=== PATIENT | female | born 1960 | race Caucasian/White ===

== ENCOUNTER 2023-09-08 05:40 | Inpatient (IN) | payer BC ==
[2023-09-05 16:19] LABS: BILIRUBIN,URINE NEGATIVE (Neg); CLARITY,URINE SLIGHTLY CLOUDY (Clear); COLOR,URINE YELLOW (Yellow); GLUCOSE, URINE NEGATIVE (Neg); KETONES,URINE NEGATIVE (Neg); LEUKOCYTE ESTERASE ,URINE NEGATIVE (Neg); NITRITES, URINE NEGATIVE (Neg); OCCULT BLOOD,URINE NEGATIVE (Neg); PH,URINE 8.5 (4.8-8.0); PROTEIN,URINE NEGATIVE (Neg); UROBILINOGEN,URINE 0.2 E.U/dL (0.2-1.0)
[2023-09-05 16:23] LABS: UA COLLECTION TYPE CLN CATCH MIDSTREAM
[2023-09-05 16:24] LABS: SQUAMOUS EPITHELIAL CELL,UR MANY /LPF (FEW)
[2023-09-05 16:27] LABS: BACTERIA,URINE 1+ /HPF (Neg); RBC,URINE NONE SEEN /HPF (0-2); WBC,URINE 0-4 /HPF (0-4)
[2023-09-05 16:32] LABS: BASOPHILS # (AUTO) 0.1 X10'3 (0-0.2); BASOPHILS % (AUTO) 1.1 % (0-1); EOSINOPHILS # (AUTO) 0.4 X10'3 (0-0.9); LYMPHOCYTES # (AUTO) 2.5 X10'3 (1.1-4.8); LYMPHOCYTES % (AUTO) 29.3 % (21-51); MEAN CORPUSCULAR HEMOGLOBIN 32.1 PG (27.0-31.0); MEAN CORPUSCULAR HGB CONC 33.4 g/dL (33.0-36.5); MEAN CORPUSCULAR VOLUME 96.3 FL (78-98); MEAN PLATELET VOLUME 8.2 FL (7.4-10.4); MONOCYTES # (AUTO) 0.8 X10'3 (0-0.9); MONOCYTES % (AUTO) 9.1 % (2-12); NEUTROPHILS # (AUTO) 4.7 X10'3 (1.8-7.7); NEUTROPHILS % (AUTO) 55.5 % (42-75); PRE OP HEMATOCRIT 44.5 % (35.0-45.0); PRE OP HEMOGLOBIN 14.8 g/dL (12.0-16.0); PRE OP PLATELET COUNT 253 X10'3 (140-440); PRE OP WHITE BLOOD COUNT 8.6 10'3 (4.8-10.8); RED BLOOD COUNT 4.62 X10'6 (4.20-5.60); RED CELL DISTRIBUTION WIDTH 14.4 % (11.5-14.5)
[2023-09-05 16:36] LABS: ALBUMIN 3.4 G/DL (3.4-5.0); ALKALINE PHOSPHATASE 139 IU/L (46-116); BLOOD UREA NITROGEN 18 MG/DL (7-18); BUN/CREATININE RATIO 25.4 (10.0-20.0); CALCIUM 8.5 MG/DL (8.5-10.1); CHLORIDE 106 MMOL/L (99-107); CREATININE 0.71 MG/DL (0.40-0.90); PRE OP ALT 22 U/L (30-65); PRE OP ANION GAP 9 (8-16); PRE OP AST 14 U/L (10-37); PRE OP BILIRUB, TOTAL 0.2 MG/DL (0.0-1.0); PRE OP GLUCOSE 83 MG/DL (70-104); PRE OP SODIUM 142 MMOL/L (135-145); TOTAL CARBON DIOXIDE 27.2 MMOL/L (24-32); TOTAL PROTEIN 6.7 G/DL (6.4-8.2); eGFR 84 ML/MIN
[2023-09-08] VITALS (20 sets, daily range): BP systolic 111–147; BP diastolic 56–94; PULSE 67–107; RESP 13–25; TEMP 97.6; O2SAT 64–98
[~2023-09-08] VITALS: Ht 167.6 cm; Wt 110.0 kg
[2023-09-08] MEDS: ceFOXitin 2GM-NS 100mL ADDvant 100 ML IV ONE (05:30)
[~2023-09-08 05:40] MED LIST: ATOR20TA PO; TIRZ5PEN3 SQ; VITAMIN B12 GUMMIES PO
[2023-09-08] MEDS: famotidine 20mg tablet PO ONE (06:29)
[2023-09-08] MEDS: ringers solution, lacted 1,000 ML IV SCH ×3 (06:30→14:00)
[2023-09-08] MEDS ORDERED: BUPIVAcaine 2.5mg/ml inj 50ml vial (contains preservative) ONE ×2 (07:16→11:26)
[2023-09-08] MEDS ORDERED: neomy sulf/polymyxin B sulf. GU irrigation 1ml amp IR ONE (07:16)
[2023-09-08] MEDS ORDERED: sevoflurane 250ml liquid IH ONE (07:37)
[2023-09-08] MEDS ORDERED: midazolam 1 mg/ML 2ml injection ONE (07:45)
[2023-09-08] MEDS ORDERED: morphine 4 MG/ML inj SYRINge IV PRN ×2 (08:10→12:45)
[2023-09-08] MEDS ORDERED: meperidine/PF 25mg/ml syringe IV PRN ×3 (08:10)
[2023-09-08] MEDS ORDERED: hydrALAZINE 20mg/ml inj. IV PRN (08:10)
[2023-09-08] MEDS ORDERED: labetalol 20mg/4ml (5mg/ml) syringe IV PRN (08:10)
[2023-09-08] MEDS ORDERED: ondansetron/PF 4mg/2ml inj IV PRN ×3 (08:10→12:45)
[2023-09-08] MEDS ORDERED: proCHLORperazine 10 MG/2 ml inj IV PRN (08:10)
[2023-09-08] MEDS ORDERED: morphine 2 MG/ML inj. syringe IV PRN ×2 (08:10→12:45)
[2023-09-08] MEDS ORDERED: fentaNYL /PF 50mcg/ml 5ml ampule ONE (08:15)
[2023-09-08] MEDS ORDERED: ondansetron/PF 4mg/2ml inj ONE (08:15)
[2023-09-08] MEDS ORDERED: propofol inj 20 ML IV ONE (08:15)
[2023-09-08] MEDS ORDERED: rocuronium 10mg/ml inj IV ONE ×2 (08:15→11:35)
[2023-09-08] MEDS ORDERED: dexamethasone sod phosphate 4mg/ml inj. ONE (08:15)
[2023-09-08] MEDS ORDERED: LIDOcaine 2% (20mg/ml) 5ml vial ONE (08:15)
[2023-09-08] MEDS ORDERED: 0.9 % SODIUM CHLORIDE 10 ML VIAL ONE (08:51)
[2023-09-08] MEDS ORDERED: ePHEDrine 50MG/ML INJ. ONE (08:51)
[2023-09-08] MEDS: BUPIVAcaine 2.5mg/ml inj 50ml vial (contains preservative) IJ ONE (08:57)
[2023-09-08] MEDS: vasoPRESSIN 20 units/ml inj. ONE (09:02)
[2023-09-08] MEDS ORDERED: glycopyrrolate 0.2mg/ml inj ONE (11:39)
[2023-09-08] MEDS ORDERED: neostigmine methylsulfate 1 MG/ML 10ml vial ONE (11:39)
[2023-09-08] MEDS ORDERED: morphine 4 MG/ML inj SYRINge ONE (11:41)
[2023-09-08] MEDS ORDERED: temazepam 15mg capsule PO PRN (11:55)
[2023-09-08] MEDS ORDERED: LORazepam 1 MG tablet PO PRN (11:55)
[2023-09-08] MEDS ORDERED: metoclopramide 5 mg/ml inj IV PRN (11:55)
[2023-09-08] MEDS ORDERED: diphenhydrAMINE 50 mg/ml inj IV PRN (11:55)
[2023-09-08] MEDS ORDERED: LORazepam 2 mg/ml vial IV PRN (11:55)
[2023-09-08] MEDS ORDERED: normal saline 500ml IV soln 500 ML IV PRN (11:55)
[2023-09-08] MEDS ORDERED: magnesium hydroxide 30ml (MOM) UD suspension PO PRN ×2 (11:55→12:45)
[2023-09-08] MEDS ORDERED: sugammadex 200mg/2ml injection IV ONE (12:19)
[2023-09-08] MEDS ORDERED: midazolam 1 mg/ML 2ml injection IV PRN (12:30)
[2023-09-08] MEDS ORDERED: fentaNYL/PF 50MCG/1 ML 2ML syringe IV PRN (12:30)
[2023-09-08] MEDS ORDERED: acetaminophen 325mg tablet PO PRN ×2 (12:45)
[2023-09-08] MEDS: LidoCAINE 2% Topical Jelly 11mL syringe (UROJET) TOP ONE (12:45)
[2023-09-08] MEDS: propofol 1000mg/100ml bottle 100 ML IV ONE (12:46)
[2023-09-08] MEDS: acetaminophen 1,000mg/100ml IV 100 ML IV ONE (12:55)
[2023-09-08] MEDS: propofol 1000mg/100ml bottle 100 ML IV SCH (12:56)
[2023-09-08] MEDS: docusate sod 100mg capsule PO SCH (20:07)
[2023-09-08] MEDS: HYDROcodone/acetaminophen 10/325mg tab PO PRN (20:08)
[2023-09-09] VITALS (13 sets, daily range): BP systolic 100–144; BP diastolic 55–81; PULSE 64–80; RESP 12–21; O2SAT 91–97
[2023-09-09 04:59] LABS: ALBUMIN 2.8 G/DL (3.4-5.0); ANION GAP 9 (8-16); BLOOD UREA NITROGEN 14 MG/DL (7-18); BUN/CREATININE RATIO 16.5 (10.0-20.0); CHLORIDE 105 MMOL/L (99-107); CREATININE 0.85 MG/DL (0.40-0.90); GLUCOSE 154 MG/DL (70-104); POTASSIUM 4.3 MMOL/L (3.5-5.1); SODIUM 138 MMOL/L (135-145); TOTAL CARBON DIOXIDE 24.3 MMOL/L (24-32); eCRCL 66 ML/MIN; eGFR 68 ML/MIN
[2023-09-09 05:01] LABS: BASOPHILS % (AUTO) 0.2 % (0-1); EOSINOPHILS % (AUTO) 0 % (0-6); HEMATOCRIT 41.8 % (35.0-45.0); HEMOGLOBIN 13.7 g/dl (12.0-16.0); LYMPHOCYTES # (AUTO) 1.2 X10'3 (1.1-4.8); LYMPHOCYTES % (AUTO) 9.5 % (21-51); MEAN CORPUSCULAR HEMOGLOBIN 31.3 PG (27.0-31.0); MEAN CORPUSCULAR HGB CONC 32.7 g/dL (33.0-36.5); MEAN CORPUSCULAR VOLUME 95.9 FL (78-98); MONOCYTES # (AUTO) 0.7 X10'3 (0-0.9); MONOCYTES % (AUTO) 5.7 % (2-12); NEUTROPHILS # (AUTO) 10.3 X10'3 (1.8-7.7); NEUTROPHILS % (AUTO) 84.6 % (42-75); PLATELET COUNT 223 X10'3 (140-440); RED BLOOD COUNT 4.36 X10'6 (4.20-5.60); RED CELL DISTRIBUTION WIDTH 14.5 % (11.5-14.5); WHITE BLOOD COUNT 12.2 X10'3 (4.5-11.0)
[2023-09-09] MEDS: HYDROcodone/acetaminophen 10/325mg tab PO PRN (07:44)
[2023-09-09] MEDS: enoxaparin 40mg/0.4ml syringe SQ SCH (07:45)
[2023-09-09] MEDS: ketorolac trometh. 30mg/ml inj. IV PRN (13:22)
== END 2023-09-09 14:17 | disposition home or self-care (01) | DRG 743 ==
LOC: PAS 05:40 → CICU 2S 12:36 → PAS 12:47 → CICU 2S 12:48
PROVIDERS: ADMIT Internal Medicine Critical Care Medicine; ATTEND Internal Medicine Critical Care Medicine
PROC: 0UT2FZZ Resection of Bilateral Ovaries, Via Natural or Artificial Opening With Percutaneous Endoscopic Assistance (ICD-10-PCS; 2023-09-08)
PROC: 0UT7FZZ Resection of Bilateral Fallopian Tubes, Via Natural or Artificial Opening With Percutaneous Endoscopic Assistance (ICD-10-PCS; 2023-09-08)
PROC: 0UN94ZZ Release Uterus, Percutaneous Endoscopic Approach (ICD-10-PCS; 2023-09-08)
PROC: 5A09357 Assistance with Respiratory Ventilation, Less than 24 Consecutive Hours, Continuous Positive Airway Pressure (ICD-10-PCS; 2023-09-08)
PROC: 0UT9FZZ Resection of Uterus, Via Natural or Artificial Opening With Percutaneous Endoscopic Assistance (ICD-10-PCS; principal; 2023-09-08 07:37)
DX: N85.02 Endometrial intraepithelial neoplasia [EIN] (principal); N73.6 Female pelvic peritoneal adhesions (postinfective); R06.89 Other abnormalities of breathing; E78.00 Pure hypercholesterolemia, unspecified; E11.9 Type 2 diabetes mellitus without complications; E66.01 Morbid (severe) obesity due to excess calories; F17.210 Nicotine dependence, cigarettes, uncomplicated; Z68.39 Body mass index [BMI] 39.0-39.9, adult
CPT/HCPCS: Z7506; Z7508; 36415; 71045; 71046; 80048; 80053; 81001; 82948; 85025; 86885; 86900; 86901; 87070; 87081; 93005; 94002; 94660; 94760; A4314; A4618; A6213; A7000; C1758; G0378; J0131; J0694; J1100; J1650; J1885; J2250; J2270; J2405; J2704; J2710; J3010; J3490; J7120